=== PATIENT | female | born 1945 | race Caucasian/White ===

== ENCOUNTER → 2017-04-09 | Outpatient (CLI) | payer OTHER | LOC: CIMAGING 14:18 | PROVIDERS: ATTEND Family Medicine | DX: Z12.31 Encounter for screening mammogram for malignant neoplasm of breast (principal) | CPT/HCPCS: G0202 ==

== ENCOUNTER → 2017-04-29 | Outpatient (CLI) | payer OTHER | LOC: CIMAGING 13:12 | PROVIDERS: ATTEND Family Medicine | DX: N60.02 Solitary cyst of left breast (principal) | CPT/HCPCS: 76641; G0206 ==

== ENCOUNTER → 2018-04-12 | Outpatient (CLI) | payer OTHER | LOC: CIMAGING 10:07 | PROVIDERS: ATTEND Family Medicine | DX: Z12.31 Encounter for screening mammogram for malignant neoplasm of breast (principal) ==

== ENCOUNTER 2018-08-01 13:29 | Emergency (ER) | payer OTHER ==
--- NOTE | 2018-08-01 13:45 | CPEKG ---
Test Reason : OPEN Blood Pressure : / mmHG Vent. Rate : 069 BPM Atrial Rate : 069 BPM P-R Int : 163 ms QRS Dur : 080 ms QT Int : 404 ms P-R-T Axes : 063 033 032 degrees QTc Int : 433 ms Sinus rhythm Probable left atrial enlargement Confirmed by Fior Worley ([id number]) on 08/01/2018 1:44:43 PM Referred By: Fior Worley Confirmed By:Fior Worley
[2018-08-01] MEDS ORDERED: NS 1,000 ML IV ONE (14:19)
--- NOTE | 2018-08-01 16:02 | EDPHY ---
H & P Stated Complaint: sob and feels anxious since 0930 after 1/2 hour exercise. no pain Time Seen by Provider: 08/01/18 13:34 HPI/ROS: 72-year-old female presents complaining of some mild shortness of breath after exercising today but not while exercising that began late this morning, she also complains of just feeling of vague feeling of "not feeling right". She returned earlier this week from a trip to the [facility], she denies a long plane flight however only about 4 hr. She does state that she had a stressful day yesterday visiting family that she is concerned about. She denies chest pain, she denies current shortness of breath she denies headache nausea vomiting fevers chills, diarrhea. She denies leg swelling or leg pain. She denies blood in her bowel movements Review of systems As per HPI General no fever no chills no weakness HEENT no eye pain no eye discharge. No eye redness, no sore throat Respiratory no cough,pos shortness of breath Cardiac no chest pain, no peripheral edema GI no abdominal pain, no diarrhea, no constipation, no nausea, no vomiting no flank pain, no hematuria, no dysuria Musculoskeletal no myalgias, no joint pain Heme no easy bruising, no easy bleeding Endo no polyuria, no polydipsia Skin no rashes, no pruritus Neuro no syncope, no dizziness, no headaches Psych is no suicidal ideation, no homicidal ideation Source: Patient, Family Exam Limitations: No limitations - Personal History Current Tetanus Diphtheria and Acellular Pertussis (TDAP): Yes Tetanus Vaccine Date: 2009 - Medical/Surgical History Hx Asthma: No Hx Chronic Respiratory Disease: No Hx Diabetes: No Hx Cardiac Disease: Yes Hx Renal Disease: No Hx Cirrhosis: No Hx Alcoholism: No Hx HIV/AIDS: No Hx Splenectomy or Spleen Trauma: No Other PMH: Hypothyroid. tonsils. appendectomy. Hysterectomy r/t endometriosis and fibroids. Hyperlipidemia - Family History Significant Family History: No pertinent family hx - Social History Smoking Status: Former smoker Alcohol Use: Occasionally Drug Use: None - Physical Exam Exam: 72-year-old female alert and oriented no acute distress nontoxic appearance, afebrile HEENT atraumatic normocephalic, extraocular muscles intact, anicteric Oropharynx negative for erythema negative exudate, tolerating her own secretions Neck supple no meningismus Lungs clear to auscultation bilaterally Heart regular rate and rhythm without murmur rub or gallop Abdomen nondistended normoactive bowel sounds soft nontender Back no CVA tenderness, no step-offs, no spinal tenderness Extremities no cyanosis clubbing or edema Neuro alert and oriented, no focal deficits Constitutional: Initial Vital Signs Heart Rate 70 08/01/18 13:41 Respiratory Rate 16 08/01/18 13:41 Blood Pressure 148/68 H 08/01/18 13:41 O2 Sat (%) 97 08/01/18 13:41 O2 Delivery Mode Room Air Allergies/Adverse Reactions: No Known Allergies Allergy (Verified 08/01/18 13:31) Home Medications: Medication Instructions Recorded Levothyroxine 0.1 mcg PO DAILY 05/31/11 Topamax 25 mg PO DAILY 05/31/11 Aspirin 81mg (OTC) 08/21/13 Vitamin D3 2000 units tab (OTC) 08/01/18 Medical Decision Making - Diagnostics Imaging Results: Imaging Impressions Chest X-Ray 08/01/18 14:19 Impression: No evidence for acute cardiopulmonary abnormality. Chronic findings as above. ED Course/Re-evaluation: Patient seen and evaluated for shortness of breath following exercise today that has now resolved, however she continues to have a vague feeling that something is not right. EKG normal sinus rhythm Chest x-ray normal IV established labs drawn CBC with a mild anemia hemoglobin 11.9 Basic metabolic panel slightly elevated BUN 26, creatinine 1.2 Troponin 0 D-dimer negative Patient given 1 L of fluid for likely mild dehydration . Impression Dyspnea unknown etiology Possible some small component of anxiety Plan Follow-up PCP Return if worsen Differential Diagnosis: Differential diagnosis considered but not limited to: Pulmonary embolus, myocardial infarction, electrolyte abnormality, anemia, dehydration, anxiety - Data Points Laboratory Results: 08/01/18 08/01/18 14:02 14:00 POC Sodium 141 mEq/L mEq/L (135-145) POC Potassium 4.2 mEq/L mEq/L (3.3-5.0) POC Chloride 107.0 mEq/L mEq/L (97-110) POC Total CO2 24 mEq/L mEq/L (22-31) POC BUN 26 mg/dL H mg/dL (7-23) POC Creatinine 1.2 mg/dL H mg/dL (0.6-1.0) POC Glucose 104 mg/dL H mg/dL (70-100) POC Calcium 9.9 mg/dL mg/dL (8.5-10.4) POC Troponin I 0.00 ng/mL ng/mL (0.00-0.08) Medications Given: Discontinued Medications Sodium Chloride (Ns) 1,000 mls @ 0 mls/hr IV ONCE ONE PRN Reason: Wide Open Stop: 08/01/18 14:20 Last Admin: 08/01/18 15:06 Dose: 1,000 mls Point of Care Test Results: CBC CBC Collection Date 08/01/18 CBC Collection Time 13:55 WBC 6.42 RBC 3.79 HGB 11.9 HCT 37 PLT 260 Neut # 4.13 Neut 64.4 LYMPH # 1.56 LYMPH 24.3 MCV 97.6 Chemistry 08/01/18 08/01/18 14:02 14:00 POC Sodium 141 mEq/L mEq/L (135-145) POC Potassium 4.2 mEq/L mEq/L (3.3-5.0) POC Chloride 107.0 mEq/L mEq/L (97-110) POC Total CO2 24 mEq/L mEq/L (22-31) POC BUN 26 mg/dL H mg/dL (7-23) POC Creatinine 1.2 mg/dL H mg/dL (0.6-1.0) POC Glucose 104 mg/dL H mg/dL (70-100) POC Calcium 9.9 mg/dL mg/dL (8.5-10.4) POC Troponin I 0.00 ng/mL ng/mL (0.00-0.08) D-Dimer D-Dimer Collection Date 08/01/18 D-Dimer Collection Time 13:55 D-Dimer (ng/ml) <100 Departure - Departure Disposition: Home, Routine, Self-Care Clinical Impression: Dyspnea Condition: Good Instructions: Dyspnea (ED), Anxiety (ED) Referrals: Amee Lucas MD [Primary Care Provider] - As per Instructions
[2018-08-01 16:22] VITALS: BP 135/53
== END 2018-08-01 16:15 | disposition home or self-care (01) ==
LOC: CED 13:29
DX: R06.00 Dyspnea, unspecified (principal); F41.9 Anxiety disorder, unspecified; E86.9 Volume depletion, unspecified; E78.5 Hyperlipidemia, unspecified; E03.9 Hypothyroidism, unspecified
CPT/HCPCS: 71046-PO; 80048-ER; 84484-ER; 85025-QW-ER; 85379-QW-ER; 96360-ER; 99285-ER

== ENCOUNTER → 2018-08-10 | Outpatient (CLI) | payer OTHER | LOC: BHFA 14:00 | PROVIDERS: ATTEND Internal Medicine Cardiovascular Disease | DX: R06.02 Shortness of breath (principal); R53.83 Other fatigue; Z82.49 Family history of ischemic heart disease and other diseases of the circulatory system | CPT/HCPCS: 78452; 93017; A9500; J2785 ==